=== PATIENT | male | born 1985 | race Caucasian/White ===

== ENCOUNTER 2018-08-20 07:48 | Outpatient (CLI) | payer BC ==
--- NOTE | 2018-08-20 08:43 | ULT ---
ABDOMINAL ULTRASOUND: HISTORY: Elevated liver function tests. FINDINGS: Real-time imaging of the upper abdomen demonstrates a normal-appearing gallbladder. The liver is of increased echogenicity. It measures 15 cm in length. Portions are obscured by bowel gas, but no mas s is seen. The spleen is 10.5 cm. Right and left kidneys are normal in size and not obstructed. The pancreas is largely obscured. The abdominal aorta and IVC regions are unremarkable. IMPRESSION: Fatty change of the liver. Normal-caliber common duct of 3-4 mm. POS: [facility]
== END 2018-08-20 07:49 | disposition home or self-care (01) ==
LOC: BICULT 07:48
PROVIDERS: ATTEND Family Medicine
DX: E80.6 Other disorders of bilirubin metabolism (principal); K76.0 Fatty (change of) liver, not elsewhere classified
CPT/HCPCS: 76700